=== PATIENT | female | born 1985 | race Caucasian/White ===

== ENCOUNTER 2018-01-08 11:37 | Outpatient (CLI) | END 2018-01-08 14:00 | disposition home or self-care (01) ==

== ENCOUNTER 2018-01-08 14:23 | Emergency (ER) | END 2018-01-08 16:38 | disposition home or self-care (01) ==

== ENCOUNTER 2018-03-04 03:00 | Inpatient (IN) | END 2018-03-06 15:10 | disposition home or self-care (01) | DRG 775 ==